=== PATIENT | female | born 2000 | race Two or more races ===

== ENCOUNTER 2025-05-05 15:01 | Outpatient (AMB) | payer MEDICAID, SELFPAY ==
--- NOTE | 2025-05-05 15:26 | AMB.OBINITIA ---
Vital Signs 05/05/25 15:33 Height 1.55 m Height Method Stated Weight 75.75 kg Weight Measurement Method Standing Scale BMI 31.5 BP 109/73 Blood Pressure Source Automatic Cuff Blood Pressure Location Right Upper Arm Position Sitting Respiration 18 Pulse 82 Pulse Source Monitor Temp 98.1 F Temp Source Temporal Artery Scan Pulse Oximetry (%) 98 Oxygen Delivery Method Room Air Allergies/Home Meds Allergies & Medications Allergies No Known Allergies Allergy (Verified 05/05/25 15:33) Medication Reconciliation No Known Home Medications 05/05/25 [History Confirmed 05/05/25] Intake Visit Data Collection New Patient or Established: Established Patient (seen at [facility] within 3 years) Reason for Visit:: OBI TRANSFER Seen by Clinical Staff ONLY (RN/MA): No Enterprise Project Manager Required: No Do You Feel Safe at Home: Yes Authorities Contacted: N/A PCP or OBGYN visit in last 3 months: No Hx Now: Yes Are you currently on any form of Control: No Pain Present Currently: Yes Pain Location: Abdomen (PELVIC) Pain Scale Used: Resendiz-Guzman/Numerical Pain scale:: 5 Smoking Status Smoking Status: Never smoker Immunizations Flu Vaccine in the Last 12 Months: No Flu Vaccine Exclusion Criteria: No Exclusion Criteria Questionnaires Covid-19 Vaccine Questionnaire Has patient been vacinated for Covid-19 Have you been vacinated for Covid-19: No PHQ-9 PHQ-2 Over the last 2 weeks, how often have you been bothered by any of the following problems? 1. Little interest or pleasure in doing things: not at all 2. Feeling down, depressed, or hopeless: not at all Total score: 0 PHQ-9 3. Trouble falling or staying asleep, or sleeping too much: Not at all 4. Feeling tired or having little energy: Not at all 5. Poor appetite or overeating: Not at all 6. Feeling bad about yourself - or that you are a failure or have let yourself or your family down: Not at all 7. Trouble concentrating on things, such as reading the newspaper or watching television: Not at all 8. Moving or speaking so slowly that other people could have noticed? - Or the opposite - being so fidgety or restless that you have been moving around a lot more than usual: not at all 9. Thoughts that you would be better off or of hurting yourself in some way: Not at all Total score: 0 If you checked off any problems, how difficult have these problems made it for you to do your work, take care of things at home, or get along with other people?: not difficult at all Source: Developed by Drs. Gregory Garcia, Mady Crump, Raza Burden and colleagues, with an educational talisha from [employer]. Depression screen completed yes Social History Living Situation History Marital Status: Lives With: Family Housing: House Tobacco History Smoking Status: Never smoker Second Hand Smoke Exposure: No Alcohol History Alcohol Intake: Never Domestic Abuse History Do You Feel Safe at Home: Yes History of Present Illness HPI Narrative 25-year-old 2 para 1 for OBI. Patient is a transfer from [facility] with records. Her last period is September 12, 2024. This makes EDC June 19, 2025. She had a 10-week ultrasound December 01 that confirmed dates. And an NT scan at 13 weeks that also confirmed dates. Patient has her next appointment for growth with [facility] May 26, 2025. Denies social habits. Denies surgery. Denies chronic illness. Patient is O+, antibody screen negative, RPR nonreactive, rubella immune, hepatitis B negative, HIV negative, hep C negative, GC and Chlamydia were negative. Her urinary culture was negative. NIPT, AFP and carrier screens all negative. And drug screen was negative patient reports good movement. Denies leaking, bleeding, contractions DERRICK MAN: Past Medical History Past Medical History: No Hx Neurological Disorders, No Hx Cardiac Disorders, No Hx Cancer, No Hx Blood Disorders, No Hx Gastrointestinal Disorders, No Hx Renal Disease, No Hx Diabetes Mellitus Type 1 and No Hx Diabetes Mellitus Type 2 OB Initial Visit OB Flowsheet OB Flowsheet Initial Weight: Not Recorded Date <del>?</del> EGA Weight BP Alb Glu CTX Pres Fundal ht FHR Mov Dilation Station Effacement Hx Notes Visit Note 05/05/25 <del>?</del> 33w 4d 75.75 kg 109/73 absent unknown 34 145 active 25-year-old 2 para 1 for OBI. She is a transfer from [facility] records. Last period September 12, 2024. This gave her EDC June 19, 2025. Patient's initial ultrasound December 01 was intrauterine of 10 weeks 6 days and this confirmed EDC June 19. And her labs were normal and her 1 hour was normal. Reports movement. Denies leaking, bleeding, contractions Keep maternal- medicine ultrasound with Dr. Briscoe on May 26. Discussed labor precautions. Kick count. I discussed diet and weight gain. Patient to walk 40 minutes a day and 10 minutes after each meal. And return in 2 weeks OB check Menstrual History Menstrual reliability: definite Flow: normal Menstrual regularity: irregular Monthly: No Age at menarche: 14 On control pills at conception: No OB History : 2 Para: 1 # of Living Children: 1 Delivery History 1st : date: 01/30/22 sex: female Delivery type: vaginal Infection History & Risk Evaluation History of STDs: none Genetic Screening & History Genetic Screening/Teratology Counseling - Includes patient, baby's father, or anyone in either family with: 1. Patient's age 35 years or older as of estimated date of delivery: No 2. Thalassemia (German, Micronesian, Mediterranean, or Background); MCV less than 80: No 3. Neural Tube Defect (Meningomyelocele, Spina Bifida, or Anencephaly): No 4. Congenital Heart Defect: No 5. Down Syndrome: No 6. Figueroa-Sachs (Ashkenazi Latter-Day, Cajun, Canadian Morrill): No 7. Isabella Disease (Ashkenazi Latter-Day): No 8. Familial Dysautonomia (Ashkenazi Latter-Day): No 9. Sickle Cell Disease or Trait (): No 10. Hemophilia or other blood disorders: No 11. Muscular Dystrophy: No 12. Cystic Fibrosis: No 13. Norma's Chorea: No 14. Mental Retardation/Autism: No 15. Other inherited genetic or chromosomal disorder: No 16. Maternal Metabolic Disorder (EG,TYPE 1 Diabetes, PKU): No 17. Patient or baby's father had a child with defects not listed above: No 18. Recurrent loss or a stillbirth: No 19. Medications (including supplements, vitamins, herbs or otc drugs)/illicit/recreational drugs/alcohol since last menstrual period: No 20. Any other: No Infection History Other (see comments) Source: [employer] Review of Systems Review of Systems Systems Reviewed: All systems reviewed, normal except as documented Exam General Limitations: no limitations General Appearance: alert, in no apparent distress, comfortable, cooperative, healthy appearing, well developed and well groomed Head Head exam: atraumatic, normocephalic and normal inspection ENT ENT exam: Present normal exam, normal oropharynx and mucous membranes moist Neck Neck exam: Present normal inspection, full ROM and trachea midline Chest Chest inspection: Present normal inspection and symmetric chest wall rise Card Cardiovascular exam: Present regular rate, normal rhythm and normal heart sounds Abdominal Abdominal exam: Present soft and normal bowel sounds Psych Psychiatric exam: Present normal affect and normal mood Office Procedures OBC Clinic LOC & Office Proc's Nursing/Assessment Patient Status: Established Patient OB Clinic Nursing Assessment: Medication Reconciliation, Update PMH in EMR and Vital Signs OB Clinic Coordination of Care: Complex Care and Chronic Disease 1-5, Education Complex Pt/Fam, Consent,records obtained, informed consent, Education Simp Pt/Fam, Lab and Imaging orders, Results/Orders obtained and Staff clarify orders Special Needs: Heart tones Established Patient Charge Established Patient Point Assignment: 155 Established Patient Point Charge: EP Level 4 (120-155) Assessment & Plan Diagnosis / Problem List (1) Encounter for supervision of high risk in third trimester, antepartum: Status: Acute Plan Discussed labor precautions. Discussed diet and weight gain. Keep maternal- medicine appointment for May 26. We reviewed labs. Walk 40 minutes a day and 10 minutes after each meal. Kick count twice a day. Additional Plan Follow Up: 2 Weeks (obc)
[2025-05-05 15:33] VITALS: BP 109/73; PULSE 82; RESP 18; TEMP 36.7; O2SAT 98; BMI 31.5
== END 2025-05-05 15:59 | disposition home or self-care (01) ==
LOC: HODSOBC 15:01
PROVIDERS: Supervising Provider Advanced Practice Midwife; Visit Provider Advanced Practice Midwife
DX: O09.93 Supervision of high risk pregnancy, unspecified, third trimester (principal); Z3A.33 33 weeks gestation of pregnancy
CPT/HCPCS: 99214; G0463

== ENCOUNTER 2025-05-20 15:28 | Outpatient (AMB) | payer MEDICAID, SELFPAY ==
[2025-05-20 15:53] VITALS: BP 120/82; PULSE 86; RESP 16; TEMP 36.6; O2SAT 98; BMI 31.9
--- NOTE | 2025-05-20 15:53 | AMB.OBPNC ---
Vital Signs 05/20/25 15:53 Height 1.55 m Height Method Stated Weight 76.771 kg Weight Measurement Method Standing Scale BMI 31.9 BP 120/82 Blood Pressure Source Automatic Cuff Blood Pressure Location Left Upper Arm Position Sitting Respiration 16 Pulse 86 Pulse Source Monitor Temp 97.8 F Temp Source Oral Pulse Oximetry (%) 98 Oxygen Delivery Method Room Air Allergies/Home Meds Allergies & Medications Allergies No Known Allergies Allergy (Verified 05/20/25 15:54) Medication Reconciliation No Known Home Medications 05/05/25 [History Confirmed 05/20/25] Immunizations Immunizations Flu Vaccine in the Last 12 Months: Yes Flu Vaccine Exclusion Criteria: Already Received Care OB Visit Log OB Flowsheet Initial Weight: Not Recorded Date <del>?</del> EGA Weight BP Alb Glu CTX Pres Fundal ht FHR Mov Dilation Station Effacement Hx Notes Visit Note 05/05/25 <del>?</del> 33w 4d 75.75 kg 109/73 absent unknown 34 145 active 25-year-old 2 para 1 for OBI. She is a transfer from [facility]. Last period September 12, 2024. This gave her EDC June 19, 2025. Patient's initial ultrasound December 01 was intrauterine of 10 weeks 6 days and this confirmed EDC June 19. And her labs were normal and her 1 hour was normal. Reports movement. Denies leaking, bleeding, contractions Keep maternal- medicine ultrasound with Dr. Briscoe on May 26. Discussed labor precautions. Kick count. I discussed diet and weight gain. Patient to walk 40 minutes a day and 10 minutes after each meal. And return in 2 weeks OB check 05/20/25 <del>?</del> 35w 5d 76.771 kg 120/82 occasional cephalic 35 146 active Fetus active. Occasional contraction and pressure. Patient has a follow-up maternal- medicine ultrasound June 26. Denies leaking or bleeding. GBS today. Discussed labor precautions. Kick count twice a day. Will call [facility] for her visits. Return week OB check RAHUL Calculator Estimated Delivery Date Method Current WG Current Estimate 06/19/25 LMP (Certain) 35w 5d Other Estimates 06/23/25 Ultrasound #1 35w 1d 06/19/25 Ultrasound #2 35w 5d 06/19/25 Manual 35w 5d final rahul: 06/19/25 Notes Visit Date: 05/20/25 Last Updated by: Mindy Fierro CNM 02/03: simple cyst L ovary: 5.9x4.45x3.9, UTD R kidney. 04/14 sono: EFW 38:, 30w4, UTD:7.4, simple cyst: 5.2x4.45x3.94 Visit Date: 05/05/25 Last Updated by: Mindy Fierro, PAVEL 25 yo . lMP 09/12/24. EDC: 06/19/25. O+, antibody screen negative, RPR is nonreactive. GC and Chlamydia were negative. Drug screen negative. UA negative. Hemoglobin A1c negative. Hepatitis B antigen negative. And hep C negative. Patient had an elevated 1 hour glucose that was 65. A1c was 5.1 and RPR was negative. Her hemoglobin was 11.4. And hematocrit 35.1. Platelets normal and then March to patient had a normal 3-hour GTT with the 3-hour result being high Office Procedures OBC Clinic LOC & Office Proc's Nursing/Assessment Patient Status: Established Patient OB Clinic Nursing Assessment: Medication Reconciliation, Update PMH in EMR and Vital Signs OB Clinic Coordination of Care: Complex Care and Chronic Disease 1-5, Consent,records obtained, informed consent, Education Simp Pt/Fam, 1 Ins Authorization, Lab and Imaging orders, Results/Orders obtained and Staff clarify orders Special Needs: Heart tones Miscellaneous Interventions: Culture Specimen Collection Established Patient Charge Established Patient Point Assignment: 165 Established Patient Point Charge: EP Level 5 (160-above) Assessment & Plan Diagnosis / Problem List (1) Encounter for supervision of high risk in third trimester, antepartum: Status: Acute Plan Labor precautions discussed. Kick count twice a day. GBS today. Patient is follow-up maternal- medicine appointment June 26. Call for previous sono records Additional Plan Follow Up: 1 Week (obc)
== END 2025-05-20 16:21 | disposition home or self-care (01) ==
PROVIDERS: Supervising Provider Advanced Practice Midwife; Visit Provider Advanced Practice Midwife
DX: O09.93 Supervision of high risk pregnancy, unspecified, third trimester (principal); Z3A.35 35 weeks gestation of pregnancy; Z36.85 Encounter for antenatal screening for Streptococcus B
CPT/HCPCS: 99215; G0463

== ENCOUNTER 2025-06-02 14:08 | Observation (INO) | payer MEDICAID, SELFPAY ==
[2025-06-02] VITALS (7 sets, daily range): BP systolic 116; BP diastolic 67; PULSE 90–96; RESP 18–98; TEMP 36.6; O2SAT 98–100; BMI 30.7
--- NOTE | 2025-06-02 15:05 | PC.NURSE ---
Interpreters HCIN used as follows [id number]
== END 2025-06-02 15:01 | disposition home or self-care (01) ==
PROVIDERS: Admitting Provider Obstetrics & Gynecology; Visit Provider Obstetrics & Gynecology
DX: O47.1 False labor at or after 37 completed weeks of gestation (principal); Z3A.37 37 weeks gestation of pregnancy
CPT/HCPCS: 59025; 59899

== ENCOUNTER 2025-06-04 10:35 | Outpatient (AMB) | payer MEDICAID, SELFPAY ==
[2025-06-04 10:52] VITALS: BP 110/68; PULSE 87; RESP 18; TEMP 36.2; O2SAT 98
--- NOTE | 2025-06-04 10:52 | AMB.OBPNC ---
Vital Signs 06/04/25 10:52 Weight 77.167 kg Weight Measurement Method Standing Scale BP 110/68 Blood Pressure Source Automatic Cuff Blood Pressure Location Left Upper Arm Position Sitting Respiration 18 Pulse 87 Pulse Source Monitor Temp 97.2 F Temp Source Oral Pulse Oximetry (%) 98 Oxygen Delivery Method Room Air Allergies/Home Meds Allergies & Medications Allergies No Known Allergies Allergy (Verified 06/04/25 10:52) Medication Reconciliation folic acid 1 mg tablet 06/02/25 [History Confirmed 06/04/25] vits no.130-ferrous fum 27 mg iron-folic acid 800 mcg tablet ( Vitamin) 1 tab PO QDAY #60 tabs 06/04/25 [Rx] Immunizations Immunizations Flu Vaccine in the Last 12 Months: No Flu Vaccine Exclusion Criteria: No Exclusion Criteria Care OB Visit Log OB Flowsheet Initial Weight: Not Recorded Date <del>?</del> EGA Weight BP Alb Glu CTX Pres Fundal ht FHR Mov Dilation Station Effacement Hx Notes Visit Note 05/05/25 <del>?</del> 33w 4d 75.75 kg 109/73 absent unknown 34 145 active 25-year-old 2 para 1 for OBI. She is a transfer from [facility]. Last period September 12, 2024. This gave her EDC June 19, 2025. Patient's initial ultrasound December 01 was intrauterine of 10 weeks 6 days and this confirmed EDC June 19. And her labs were normal and her 1 hour was normal. Reports movement. Denies leaking, bleeding, contractions Keep maternal- medicine ultrasound with Dr. Briscoe on May 26. Discussed labor precautions. Kick count. I discussed diet and weight gain. Patient to walk 40 minutes a day and 10 minutes after each meal. And return in 2 weeks OB check 05/20/25 <del>?</del> 35w 5d 76.771 kg 120/82 occasional cephalic 35 146 active Fetus active. Occasional contraction and pressure. Patient has a follow-up maternal- medicine ultrasound June 26. Denies leaking or bleeding. GBS today. Discussed labor precautions. Kick count twice a day. Will call [facility] for her visits. Return week OB check 12/26/25 <del>?</del> 37w 6d 77.167 kg 110/68 occasional cephalic 37 145 active Reports good movement. Denies leaking, occasional contraction. No bleeding. GBS negative. Discussed ultrasound findings. Baby will need to see pediatric urology and get ultrasound after delivery. Discussed labor precautions. Kick count twice a day. Refill prenatals and return in a week OB check RAHUL Calculator Estimated Delivery Date Method Current WG Current Estimate 06/19/25 LMP (Certain) 37w 6d Other Estimates 06/23/25 Ultrasound #1 37w 2d 06/19/25 Ultrasound #2 37w 6d 06/19/25 Manual 37w 6d final rahul: 06/19/25, efw 70% Notes Visit Date: 06/04/25 Last Updated by: Mindy Fierro CNM sono: 05/26: EFW 70%, 36w4, Bilateral pylectasis: f/u ped urology after , bladder, ureters normal GBS- Visit Date: 05/20/25 Last Updated by: Mindy Fierro CNM 02/03: simple cyst L ovary: 5.9x4.45x3.9, UTD R kidney. 04/14 sono: EFW 38:, 30w4, UTD:7.4, simple cyst: 5.2x4.45x3.94 Visit Date: 05/05/25 Last Updated by: Mindy Fierro CNM 25 yo . lMP 09/12/24. EDC: 06/19/25. O+, antibody screen negative, RPR is nonreactive. GC and Chlamydia were negative. Drug screen negative. UA negative. Hemoglobin A1c negative. Hepatitis B antigen negative. And hep C negative. Patient had an elevated 1 hour glucose that was 65. A1c was 5.1 and RPR was negative. Her hemoglobin was 11.4. And hematocrit 35.1. Platelets normal and then March to patient had a normal 3-hour GTT with the 3-hour result being high Office Procedures OBC Clinic LOC & Office Proc's Nursing/Assessment Patient Status: Established Patient OB Clinic Nursing Assessment: Medication Reconciliation, Update PMH in EMR and Vital Signs OB Clinic Coordination of Care: Complex Care and Chronic Disease 1-5, Consent,records obtained, informed consent, Education Simp Pt/Fam, Lab and Imaging orders, Results/Orders obtained and Staff clarify orders Special Needs: Heart tones Established Patient Charge Established Patient Point Assignment: 135 Established Patient Point Charge: EP Level 3 (80-115) Assessment & Plan Diagnosis / Problem List (1) Encounter for supervision of high risk in third trimester, antepartum: Status: Acute Plan Discussed GBS. Refill prenatals. Discussed labor precautions. Kick count twice a day. Discussed danger signs symptoms and ER precautions. Will notify laboratory chemist at about dilated kidneys. Return in week OB Additional Plan Follow Up: 1 Week (obc)
== END 2025-06-04 11:45 | disposition home or self-care (01) ==
LOC: HODSOBC 10:35
PROVIDERS: Supervising Provider Advanced Practice Midwife; Visit Provider Advanced Practice Midwife
DX: O09.893 Supervision of other high risk pregnancies, third trimester (principal); O35.EXX0 Maternal care for other (suspected) fetal abnormality and damage, fetal genitourinary anomalies, not applicable or unspecified; Z3A.37 37 weeks gestation of pregnancy
CPT/HCPCS: 99213; G0463